=== PATIENT | female | born 1955 | race Caucasian/White ===

== ENCOUNTER → 2018-03-04 15:51 | Outpatient (CLI) | payer MEDICAID | END | disposition home or self-care (01) | LOC: D.CT 15:51 | DX: R31.9 Hematuria, unspecified (principal) ==

== ENCOUNTER → 2018-04-29 12:11 | Outpatient (CLI) | payer MEDICAID ==
[~2018-04-29 12:11] MED LIST: CARAFATE1 G; COVARYX TABLET1 TAB PO; HALCION0.25 MG PO; HYDROCODON-ACE1 EAC7 PO; OMEPRAZOLE40 MG PO; TEMAZEPAM30 MG PO
== END | disposition home or self-care (01) ==
LOC: D.RAD 12:11
DX: K56.600 Partial intestinal obstruction, unspecified as to cause (principal)

== ENCOUNTER 2018-05-18 09:30 | Inpatient (IN) | payer MEDICAID ==
[2018-05-15 13:07] LABS: HEMATOCRIT 37.8 % (36.0-48.0); HEMOGLOBIN 12.4 g/dL (12-16); MCH 30.5 pg (26.0-34.0); MCHC 32.8 g/dL (31.0-37.0); MCV 93.1 fL (80.0-100.0); MEAN PLATELET VOLUME 9.3 fL (7.4-10.4); RBC 4.06 10x6/uL (4.00-5.40); RDW 17.3 % (11.5-14.5); WBC 3.8 10x3/uL (4.8-10.8)
[~2018-05-18] VITALS: Ht 160 cm; Wt 43.5 kg
--- NOTE | ~2018-05-18 | OP ---
PATIENT NAME: ANGEL DE LA ROSA MEDICAL RECORD: [id number] :59 LOCATION:[id number] ADMISSION DATE:05/18/18 SURGEON: SHANNAN VARGAS MD DATE OF OPERATION: 05/18/2018 SURGEON: Shannan Vargas MD PREOPERATIVE DIAGNOSES: 1. Obstruction of duodenum. 2. Chronic gastric ulcer with obstruction. 2. Cholelithiasis. 3. Hiatal hernia. POSTOPERATIVE DIAGNOSES: 1. Obstruction of duodenum. 2. Chronic gastric ulcer with obstruction. 2. Cholelithiasis. 3. Hiatal hernia. PROCEDURE PERFORMED: Laparoscopic gastrojejunostomy. ANESTHESIA: General. COMPLICATIONS: None. SPECIMENS: None. Case was clean contaminated. ESTIMATED BLOOD LOSS: 30 cc. OPERATIVE COURSE: After consent was obtained, the patient was taken to the operating room and placed in the supine position on the operating table. Next, general anesthesia was given via endotracheal intubation after a timeout was performed to confirm the correct patient and procedure. The abdomen was prepped and draped in typical sterile fashion. A 5 cc of local anesthetic was injected just below the umbilicus. A stab incision was made with 11-blade scalpel. Using a 5-mm bladeless optical trocar, the abdomen was entered under direct laparoscopic vision. Adequate pneumoperitoneum was achieved. The abdominal cavity was inspected. No evidence of bowel injury, no evidence of bleeding. As consist in the preoperative imaging, the stomach was markedly dilated and enlarged. An NG tube was placed for decompression. At this time, 2 additional trocars were placed, a 12-mm trocar into the right lower quadrant and 5-mm trocar into the right lateral quadrant, both under direct laparoscopic vision. Next, the greater omentum was grasped and retracted cephalad. The transverse mesocolon was retracted cephalad exposing the transverse mesocolon. The ligament of Treitz was identified. The small bowel was run from the ligament of Treitz approximately 30-40 cm. At approximately 30-40 cm, the jejunum was brought in an antecolic fashion to the transverse colon. At this time, at 40 cm, the jejunum was sewn to the greater curvature of the stomach using a 3-0 Stratafix suture getting seromuscular bites. Next, a gastrotomy and an enterotomy were made with electrocautery. The linear GI stapler was passed through to create a common enterotomy. The enterotomy was widely patent. The common enterotomy was then closed with a 3-0 Stratafix suture in a 2-layer fashion. The inner suture line was then imbricated with a continuous running of the suture. At this time, the abdominal cavity was inspected. There was no evidence of bowel injury, no evidence of bleeding. The 12-mm trocar was OPERATIVE REPORT [id number] ANGEL DE LA ROSA removed. The 12-mm trocar site was closed with an 0 Vicryl suture and a Jerman-Odette suture passer. All remaining instruments were removed. The abdomen was desufflated. Remaining trocars were removed. Skin was closed with 4-0 Monocryl, Mastisol and Steri-Strips. At the end of the case, all needle and instrument counts were correct. No complications occurred. The patient was extubated and transferred to the PACU in stable condition. TRANSINT:[id number] Voice Confirmation ID: [id number] DOCUMENT ID: [id number] SHANNAN VARGAS MD at 2051 CC: [id number] DICTATION DATE: 05/18/18 1415 MANAGER PRODUCT MARKETING: 05/18/18 1508 ADM IN [facility] [address] [place] [address]
[~2018-05-18 09:30] MED LIST changes: -CARAFATE1 G; -HYDROCODON-ACE1 EAC7 PO; -OMEPRAZOLE40 MG PO
[2018-05-18] MEDS ORDERED: CARAFATE1 G (10:18)
[2018-05-18 10:33] VITALS: BP 120/83; BMI 17.2
[2018-05-18 15:08] VITALS: BP 132/78
[2018-05-18 18:35] VITALS: BP 129/75; Ht 160 cm; Wt 43.5 kg
[2018-05-19 03:20] VITALS: BP 101/56
[2018-05-19 06:25] LABS: BASOPHILS 0 % (0-2); EOSINOPHILS 0 % (0-7); HEMATOCRIT 26.8 % (36.0-48.0); HEMOGLOBIN 8.4 g/dL (12-16); IMMATURE GRANULOCYTES 0.3 % (0-5); LYMPHOCYTES 3.2 % (15-50); MCHC 31.3 g/dL (31.0-37.0); MCV 92.4 fL (80.0-100.0); MEAN PLATELET VOLUME 9.7 fL (7.4-10.4); MONOCYTES 5.2 % (2-11); NEUTROPHILS 91.3 % (40-80); PLATELET COUNT 276 10x3/uL (130-400); RDW 17.7 % (11.5-14.5); WBC 13.8 10x3/uL (4.8-10.8)
[2018-05-19 06:28] LABS: ANION GAP 9.1 mmol/L (8-16); CALCIUM 8.5 mg/dL (8.5-10.1); CARBON DIOXIDE 28.3 mmol/L (21.0-32.0); POTASSIUM - SERUM 5.4 mmol/L (3.5-5.1)
[2018-05-19 09:05] VITALS: BP 111/56
[2018-05-19] MEDS ORDERED: HYDROCODON-ACE1 EAC7 PO (10:04)
[2018-05-19] MEDS ORDERED: OMEPRAZOLE40 MG PO (10:04)
[2018-05-19 11:57] VITALS: BP 112/49
== END 2018-05-19 15:08 | disposition home or self-care (01) | DRG 328 ==
LOC: D.SDCHOLD 09:30 → EDSTATUS 10:30 → D.PAN 10:30 → D.OPS 11:15 → D.PAN 11:15 → D.SDCHOLD 11:30 → D.PAN 11:30 → D.MS 14:49
PROVIDERS: Anesthesiology; Surgery
PROC: 0D164ZA Bypass Stomach to Jejunum, Percutaneous Endoscopic Approach (ICD-10-PCS; principal; 2018-05-18 11:30)
DX: K31.5 Obstruction of duodenum (principal); K44.9 Diaphragmatic hernia without obstruction or gangrene; K25.7 Chronic gastric ulcer without hemorrhage or perforation; K80.20 Calculus of gallbladder without cholecystitis without obstruction

== ENCOUNTER 2018-07-01 15:31 | Outpatient (CLI) | payer MEDICAID ==
[~2018-07-01] VITALS: Ht 160 cm; Wt 44.5 kg
[~2018-07-01 15:31] MED LIST changes: +CARAFATE1 G; +HYDROCODON-ACE1 EAC7 PO; +OMEPRAZOLE40 MG PO
[2018-07-01 16:18] VITALS: Ht 160 cm; Wt 44.5 kg
== END 2018-07-01 21:03 | disposition home or self-care (01) ==
LOC: D.OPS 15:31 → D.M2 20:01 → D.OPS 21:03
DX: D64.9 Anemia, unspecified (principal); Z01.812 Encounter for preprocedural laboratory examination

== ENCOUNTER 2018-07-13 05:34 | Day surgery (SDC) | payer MEDICAID ==
[~2018-07-13] VITALS: Ht 160 cm; Wt 44.1 kg
--- NOTE | ~2018-07-13 | OP ---
PATIENT NAME: ANGEL DE LA ROSA MEDICAL RECORD: [id number] :59 LOCATION:[facility] ADMISSION DATE: SURGEON: ALVARO ALVAREZ DO DATE OF OPERATION: 07/13/2018 PROCEDURE: EGD with biopsies. INDICATIONS FOR PROCEDURE: Stricture of the duodenum, status post gastrojejunostomy. SCOPE: Olympus video gastroscope. MEDICATIONS: Propofol 80 mg IV per anesthesia. ESTIMATED BLOOD LOSS: Minimal. COMPLICATIONS: None. FINDINGS: Informed consent was given. The patient was made comfortable with the above medication. After reaching an adequate level of sedation by slow IV push, the patient was placed on her left side. The endoscope was advanced under direct visualization through the mouth to the jejunum. The upper, middle, and lower thirds of the esophagus appeared normal. 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 Two cold forceps biopsies were taken from this site to submit for histology. The endoscope was advanced beyond the GE junction into the stomach and retroflexed to view the cardia, which appeared normal. Throughout the fundus, body, and antrum of the stomach, there was patchy erythema consistent with possible gastritis. Random cold forceps biopsies were taken to submit for histopathology and to rule out the presence of H. pylori. There was evidence of a prior intervention in the form of a jejunostomy involving the greater curvature of the stomach. The anastomosis appeared healthy. Aj were evident on the examination. The endoscope easily traversed the anastomosis into the jejunum, which appeared normal. The endoscope was then withdrawn from this site back into the stomach. The endoscope was advanced down to the pylorus and beyond the pylorus into the duodenal bulb, where there is a fair amount of granularity. The previously identified stricture was again seen. The endoscope could not pass this site. With contact, the site was friable and there was some minor bleeding. The endoscope was then withdrawn back into the stomach and the stomach was decompressed. The endoscope was withdrawn from the patient. The patient tolerated the procedure well, and there were no complications. IMPRESSION: 1. 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 Biopsies were taken. 2. Patchy gastritis characterized by erythema and friability. Biopsies taken to rule out the presence of Helicobacter pylori. 3. Prior intervention in the form of a gastrojejunostomy, which appears patent and healthy and appears to be healing well. 4. Duodenal stricture, which will not allow the endoscope to pass through. PLAN AND RECOMMENDATIONS: 1. Discharge home when recovery parameters are met. 2. Continue current diet and medications. 3. Maintain follow up with Dr. Christianson of general surgery as scheduled. OPERATIVE REPORT [id number] ANGEL DE LA ROSA 4. Repeat EGD as needed or within surveillance guidelines if Goodson's esophagus is present. TRANSINT:[id number] Voice Confirmation ID: [id number] DOCUMENT ID: [id number] ALVARO ALVAREZ DO CC: [id number] DICTATION DATE: 07/13/18 0757 OUTDOOR ADVENTURE LEADER: 07/13/18 0812 [facility] [address] [place] [address]
[2018-07-13 05:47] LABS: HEMATOCRIT 37.2 % (36.0-48.0); HEMOGLOBIN 11.8 g/dL (12-16); MCH 29.1 pg (26.0-34.0); MCHC 31.7 g/dL (31.0-37.0); MCV 91.6 fL (80.0-100.0); RBC 4.06 10x6/uL (4.00-5.40); RDW 16.6 % (11.5-14.5); WBC 5.2 10x3/uL (4.8-10.8)
[2018-07-13] MEDS ORDERED: XANAX0.5 MG PO (06:10)
[2018-07-13] MEDS ORDERED: FLINTSTONE1 TAB.CHEW PO (06:11)
[2018-07-13 06:19] VITALS: BP 122/72; Ht 160 cm; Wt 44.1 kg
== END 2018-07-13 08:55 | disposition home or self-care (01) ==
LOC: D.OPS 05:34
PROVIDERS: Anesthesiology
DX: K21.0 Gastro-esophageal reflux disease with esophagitis (principal); K31.5 Obstruction of duodenum; K29.80 Duodenitis without bleeding; K29.50 Unspecified chronic gastritis without bleeding; Z93.4 Other artificial openings of gastrointestinal tract status; Z01.812 Encounter for preprocedural laboratory examination

== ENCOUNTER 2018-07-24 10:30 | Inpatient (IN) | payer MEDICAID ==
[~2018-07-24] VITALS: Ht 160 cm; Wt 43.5 kg
[~2018-07-24 10:30] MED LIST changes: +FLINTSTONE1 TAB.CHEW PO; +XANAX0.5 MG PO
[2018-07-24] MEDS ORDERED: RANITIDINE HCL150 M1 PO (10:41)
[2018-07-24] MEDS ORDERED: OMEPRAZOLE20 M1 PO (10:42)
[2018-07-24 11:16] LABS: BASOPHILS 0.2 % (0-2); EOSINOPHILS 0.2 % (0-7); HEMATOCRIT 32.3 % (36.0-48.0); HEMOGLOBIN 10.3 g/dL (12-16); IMMATURE GRANULOCYTES 0.1 % (0-5); LYMPHOCYTES 3.5 % (15-50); MCH 29.3 pg (26.0-34.0); MCHC 31.9 g/dL (31.0-37.0); MCV 91.8 fL (80.0-100.0); MONOCYTES 0.9 % (2-11); NEUTROPHILS 95.1 % (40-80); PLATELET COUNT 363 10x3/uL (130-400); RBC 3.52 10x6/uL (4.00-5.40); RDW 17.5 % (11.5-14.5); WBC 10.9 10x3/uL (4.8-10.8)
[2018-07-24 11:32] LABS: ALBUMIN 3.5 g/dL (3.4-5.0); ALKALINE PHOSPHATASE 158 U/L (46-116); ALT (SGPT) 124 U/L (10-68); BILIRUBIN - TOTAL 0.84 mg/dL (0.2-1.3); CALC OSMOLALITY 280 mosm/kg (275-300); CARBON DIOXIDE 25.2 mmol/L (21.0-32.0); CHLORIDE - SERUM 105 mmol/L (98-107); CREATININE - SERUM 1.4 mg/dL (0.6-1.3); POTASSIUM - SERUM 4.2 mmol/L (3.5-5.1); PROTEIN - SERUM 6.7 g/dL (6.4-8.2); SODIUM 138 mmol/L (136-145); UREA NITROGEN 16 mg/dL (7-18); eGFR NON AFRICAN AMERICAN 41 mL/min (90-120)
[2018-07-24 11:35] LABS: GLUCOSE 179 mg/dL (74-106)
[2018-07-24 11:43] LABS: AMYLASE - SERUM 87 U/L (25-115); CKMB 0.9 U/L (0.0-3.6); CREATINE KINASE 69 UL (21-215); LIPASE 334 U/L (73-393); TROPONIN-I < 0.017 ng/mL (0.000-0.060)
[2018-07-24 16:40] LABS: APPEARANCE CLEAR (CLEAR); BILIRUBIN NEGATIVE (NEGATIVE); COLOR YELLOW (YELLOW); GLUCOSE NEGATIVE (NEGATIVE); KETONE NEGATIVE (NEGATIVE); NITRITE NEGATIVE (NEGATIVE); PROTEIN NEGATIVE (NEGATIVE); UROBILINOGEN NORMAL (NORMAL)
[2018-07-24 18:47] VITALS: BP 112/73
[2018-07-24 22:31] VITALS: BP 90/51
[2018-07-24 22:52] VITALS: BP 90/51; BMI 17.0
[2018-07-25 04:00] VITALS: BP 103/57
[2018-07-25 05:27] LABS: BASOPHILS 0.1 % (0-2); EOSINOPHILS 0.1 % (0-7); HEMOGLOBIN 9.6 g/dL (12-16); IMMATURE GRANULOCYTES 0.2 % (0-5); LYMPHOCYTES 3.4 % (15-50); MCH 28.9 pg (26.0-34.0); MCV 90.4 fL (80.0-100.0); MEAN PLATELET VOLUME 8.9 fL (7.4-10.4); MONOCYTES 3.9 % (2-11); NEUTROPHILS 92.3 % (40-80); PLATELET COUNT 341 10x3/uL (130-400); RBC 3.32 10x6/uL (4.00-5.40); RDW 17.9 % (11.5-14.5)
[2018-07-25 05:29] LABS: WBC 14.7 10x3/uL (4.8-10.8)
[2018-07-25 05:39] LABS: ALBUMIN 2.8 g/dL (3.4-5.0); ANION GAP 12.6 mmol/L (8-16); BILIRUBIN - TOTAL 1.08 mg/dL (0.2-1.3); CALCIUM 8.9 mg/dL (8.5-10.1); CARBON DIOXIDE 24.1 mmol/L (21.0-32.0); CREATININE - SERUM 1.1 mg/dL (0.6-1.3); POTASSIUM - SERUM 3.7 mmol/L (3.5-5.1); PROTEIN - SERUM 6.3 g/dL (6.4-8.2)
[2018-07-25 09:13] VITALS: BP 112/55
[2018-07-25 15:44] VITALS: Ht 160 cm; Wt 43.5 kg
[2018-07-25 17:18] VITALS: BP 103/43
[2018-07-25 20:00] VITALS: BP 96/60
[2018-07-25 23:45] VITALS: BP 107/70
[2018-07-26 04:00] VITALS: BP 101/54
[2018-07-26 06:42] LABS: ALBUMIN 2.3 g/dL (3.4-5.0); ANION GAP 9.7 mmol/L (8-16); BILIRUBIN - DIRECT 0.29 mg/dL (0.00-0.30); BILIRUBIN - INDIRECT 0.2 mg/dL (0.00-1.00); BILIRUBIN - TOTAL 0.49 mg/dL (0.2-1.3); CALCIUM 8.5 mg/dL (8.5-10.1); CARBON DIOXIDE 25.1 mmol/L (21.0-32.0); CREATININE - SERUM 0.9 mg/dL (0.6-1.3); POTASSIUM - SERUM 3.8 mmol/L (3.5-5.1); PROTEIN - SERUM 5.5 g/dL (6.4-8.2)
[2018-07-26 07:17] LABS: APTT 32.4 SECONDS (22.8-39.4); INR 1.02 (0.85-1.17)
[2018-07-26 09:10] VITALS: BP 110/57
[2018-07-26 20:23] VITALS: BP 130/76
[2018-07-27] VITALS (9 sets, daily range): BP systolic 117–130; BP diastolic 66–77
[2018-07-27 06:43] LABS: BASOPHILS 0.4 % (0-2); EOSINOPHILS 1.4 % (0-7); HEMATOCRIT 28.5 % (36.0-48.0); IMMATURE GRANULOCYTES 0.1 % (0-5); LYMPHOCYTES 7.8 % (15-50); MCH 28.8 pg (26.0-34.0); MCHC 31.6 g/dL (31.0-37.0); MCV 91.1 fL (80.0-100.0); MEAN PLATELET VOLUME 9.3 fL (7.4-10.4); MONOCYTES 11.8 % (2-11); NEUTROPHILS 78.5 % (40-80); RBC 3.13 10x6/uL (4.00-5.40); RDW 18.7 % (11.5-14.5); WBC 7.4 10x3/uL (4.8-10.8)
[2018-07-27 06:58] LABS: PLATELET COUNT 219 10x3/uL (130-400)
[2018-07-27 07:08] LABS: CALC OSMOLALITY 275 mosm/kg (275-300); CALCIUM 8.5 mg/dL (8.5-10.1); CARBON DIOXIDE 25.9 mmol/L (21.0-32.0); CHLORIDE - SERUM 107 mmol/L (98-107); CREATININE - SERUM 0.8 mg/dL (0.6-1.3); GLUCOSE 91 mg/dL (74-106); SODIUM 140 mmol/L (136-145); eGFR NON AFRICAN AMERICAN 77 mL/min (90-120)
[2018-07-27 07:09] LABS: UREA NITROGEN 4 mg/dL (7-18)
[2018-07-27] MEDS ORDERED: HYDROCODON-ACE1 EAC7 PO (10:41)
== END 2018-07-27 14:55 | disposition home or self-care (01) | DRG 419 ==
LOC: D.ER 10:30 → D.EDHOLD 17:08 → D.MS 17:08
PROVIDERS: Family Medicine; Surgery
PROC: 0FT44ZZ Resection of Gallbladder, Percutaneous Endoscopic Approach (ICD-10-PCS; principal; 2018-07-27 09:30)
DX: K81.0 Acute cholecystitis (principal); F41.9 Anxiety disorder, unspecified

== ENCOUNTER 2019-09-06 08:00 | Outpatient (CLI) | payer MEDICAID ==
[2018-07-25 15:44] VITALS: BMI 16.9
[~2019-09-06 08:00] MED LIST changes: +OMEPRAZOLE20 M1 PO; +RANITIDINE HCL150 M1 PO
== END 2019-09-06 23:59 | disposition home or self-care (01) ==
LOC: D.MAMMO 08:00
PROVIDERS: ATTEND Family Medicine
DX: Z12.31 Encounter for screening mammogram for malignant neoplasm of breast (principal)

== ENCOUNTER → 2020-03-31 08:48 | Outpatient (CLI) | payer MEDICAID ==
[2018-07-25 15:44] VITALS: BMI 16.9
== END | disposition home or self-care (01) ==
LOC: D.NM 08:48
PROVIDERS: ATTEND Internal Medicine Gastroenterology
DX: R10.84 Generalized abdominal pain (principal); R14.0 Abdominal distension (gaseous)